=== PATIENT | female | born 1970 | race African-American/Black ===

== ENCOUNTER → 2017-04-16 | Outpatient (CLI) | payer BC ==
[~2017-04-16] MED LIST: FISH OIL 1,0001 EAC3 PO; VITAMIN D35000 UNIT PO; ZYRTEC10 M2 PO
--- NOTE | ~2017-04-16 | CT2 ---
[facility] A Service of [facility] / [facility] RADIOLOGY TEXT RESULTS PATIENT: CHELI HAYS LOCATION: [facility] : 70 UNIT #: [id number] AGE: [address]: OLLIE CASTILLO APRN SEX: F ORDER DR: [id number] [facility] [address] [facility] [place], [place] [address] [id number] O MR#: [id number] Acc #: [id number] NAME: CHELI HAYS : 1970 SEX: F STUDY DATE/TIME: 04/16/2017 14:59 UNIT: [facility] ROOM: STUDY DESCRIPTION: CT Abd and Pelv W Cont Attending Physician: Ollie Castillo Aprn Referring Physician: Ollie Castillo Aprn Ordering Physician: Ollie Castillo Aprn Primary Care Physician: Stewart Araiza M.D. MEDICAL IMAGING REPORT This report is preliminary unless electronic signature is present EXAM CT abdomen and pelvis with contrast INDICATIONS Elevated liver enzyme levels for the past 3 weeks with lower and mid abdominal pain for the past week. PROCEDURE Unenhanced CT of the abdomen and pelvis. This CT exam was performed with one or more of the following radiation dose reduction techniques: automatic control, adjustment of mA and/or kV according to patient size, and iterative reconstruction. COMPARISON None FINDINGS ABDOMEN WITH CONTRAST: Included lung bases are clear. The liver, spleen kidneys, adrenal, pancreas and gallbladder are unremarkable. No biliary dilation. Bowel loops are nondilated appendix is normal. PELVIS WITH CONTRAST: Uterus is enlarged with multiple fibroids in the uterine body and fundus. Index fibroid towards the left of the fundus measures 6.3 cm. Overall the uterus measures up to 18.2 cm in length. No appreciable adnexal mass or pelvic fluid. No aggressive appearing bone lesion. IMPRESSION 1. No acute findings. No specific finding to explain the patient's elevated liver enzyme levels. 2. Uterus enlarged by multiple fibroids with an index measurement [facility] A Service of [facility] / [facility] RADIOLOGY TEXT RESULTS PATIENT: CHELI HAYS LOCATION: [facility] #: [id number] : [birth year] UNIT #: [id number] AGE: [address]: OLLIE CASTILLO APRN SEX: F ORDER DR: provided above. Dictated by... Armando Montiel M.D. THIS IS AN ELECTRONICALLY VERIFIED REPORT Armando Montiel M.D. at 04/17/2017 12:10 PM EETrey/rose mary TD: 04/17/2017 04:14 JOB #: [id number] MEDICAL IMAGING REPORT Page 1 of 1 COPY
== END | disposition home or self-care (01) ==
LOC: CCAT 12:59
DX: R79.89 Other specified abnormal findings of blood chemistry (principal); R19.00 Intra-abdominal and pelvic swelling, mass and lump, unspecified site; D25.9 Leiomyoma of uterus, unspecified
CPT/HCPCS: 74177; Q9967